=== PATIENT | female | born 1995 | race Caucasian/White ===

== ENCOUNTER 2017-07-08 08:31 | Emergency (ER) | payer SELFPAY ==
[~2017-07-08] VITALS: Ht 172.7 cm; Wt 56.7 kg
[2017-07-08] MEDS ORDERED: SODIUM CHLORIDE 0.9% 1,000 ML IV ONE (09:01)
[2017-07-08 09:03] VITALS: BP 100/44
[2017-07-08 09:08] LABS: Basophils # (auto) 0 uL; Basophils % (auto) 0.3 % (0.0-2.0); CONDITION Y; Eosinophils # (auto) 0.1 uL; Eosinophils % (auto) 1.4 % (0.0-7.0); Hemoglobin 12.2 g/dL (12.2-16.2); Lymphocytes % (auto) 16.5 % (10.0-50.0); Mean Corpuscular Hemoglobin 28.6 pg (28.0-32.0); Mean Corpuscular Hgb Conc. 33.9 g/dL (32.0-36.0); Mean Corpuscular Volume 84.3 fL (80.0-100.0); Mean Platelet Volume 9.1 fL (7.4-10.4); Monocytes # (auto) 0.4 uL; Monocytes % (auto) 6.1 % (0.0-12.0); Neutrophils # (auto) 4.6 uL; Neutrophils % (auto) 75.7 % (37.0-80.0); Platelet Count (auto) 213 10^3/uL (140-450); White Blood Cell 6.1 10^3/uL (4.4-10.8)
[2017-07-08] MEDS ORDERED: METOCLOPRAMIDE HCL 5MG/ml INJ 2ml VIAL IV ONE (09:15)
[2017-07-08 09:21] LABS: BUN/Creatinine Ratio 20.6; Calcium 8.4 mg/dL (8.5-10.1); Potassium 3.6 mmol/L (3.5-5.1)
[2017-07-08 10:24] LABS: Urine Bilirubin Negative (Negative); Urine Blood Negative /uL (Negative); Urine Color Yellow (Yellow); Urine Glucose Normal (Normal); Urine Ketone Negative (Negative); Urine Mucus FEW (None Seen); Urine Nitrite Negative (Negative); Urine RBC 1 /hpf (0 - 4); Urine Squamous Epithelial Cell FEW /hpf (<5); Urine Urobilinogen Normal (Negative); Urine pH 7.5 (5.0-8.0)
[2017-07-08] MEDS ORDERED: EPOETIN ALFA 10,000 UNIT/1 ML VIAL ONE (20:12)
== END 2017-07-08 10:51 | disposition home or self-care (01) ==
LOC: ER 08:34
DX: O21.9 Vomiting of pregnancy, unspecified (principal); Z3A.13 13 weeks gestation of pregnancy
CPT/HCPCS: 36415; 80048; 81001; 82010; 84702; 85025; 94761; 96361; 96374; 99284; J0885; J2765; J7030

== ENCOUNTER 2017-10-06 05:13 | Observation (INO) | payer MEDICAID ==
[2017-10-06] MEDS ORDERED: AMOX250C3 PO (06:21)
[2017-10-06] MEDS ORDERED: PREN27TA7 OR (06:21)
== END 2017-10-06 06:20 | disposition home or self-care (01) | DRG 955 ==
LOC: LDRP 05:13
PROVIDERS: ADMIT Obstetrics & Gynecology; ATTEND Obstetrics & Gynecology
DX: O26.899 Other specified pregnancy related conditions, unspecified trimester (principal); R10.9 Unspecified abdominal pain; M54.9 Dorsalgia, unspecified; Z3A.00 Weeks of gestation of pregnancy not specified
CPT/HCPCS: 59025; 81002; G0378